=== PATIENT | female | born 1990 | race Caucasian/White ===

== ENCOUNTER 2025-04-30 21:02 | Emergency (ER) | payer OTHER ==
[~2025-04-30] VITALS: Ht 170.2 cm; Wt 53.0 kg
[2025-04-30 21:24] VITALS: TEMP 98.5
[2025-04-30 22:33] VITALS: BP 112/59; PULSE 88; RESP 18; O2SAT 97
== END 2025-04-30 23:30 | disposition home or self-care (01) ==
LOC: EMS 21:02
DX: S93.511A Sprain of interphalangeal joint of right great toe, initial encounter (principal); J45.909 Unspecified asthma, uncomplicated; Z88.0 Allergy status to penicillin; X58.XXXA Exposure to other specified factors, initial encounter; Y93.89 Activity, other specified; Y92.89 Other specified places as the place of occurrence of the external cause; Y99.8 Other external cause status
CPT/HCPCS: 99283